=== PATIENT | female | born 1970 | race African-American/Black ===

== ENCOUNTER 2021-11-07 07:32 | Day surgery (SDC) | payer OTHER ==
[~2021-11-07] VITALS: Ht 167.6 cm; Wt 105.7 kg
[~2021-11-07 07:32] MED LIST: CENTRUM SILVER1 TA1; OMEGA 31000 MG PO; OMEPRAZOLE20 MG PO; PROBIOTI2 PO; TURMERIC CURCU500 MG PO; VALACYCLOVIR500 MG PO; [UNRECOGNIZED DRUG - OTHER] PO
[2021-11-07 09:57] VITALS: BP 148/75
== END 2021-11-07 10:00 | disposition home or self-care (01) | DRG 951 ==
LOC: ENDO 07:32
PROVIDERS: ATTEND Surgery
PROC: 0DBN8ZX Excision of Sigmoid Colon, Via Natural or Artificial Opening Endoscopic, Diagnostic (ICD-10-PCS; principal; 2021-11-07)
DX: Z12.11 Encounter for screening for malignant neoplasm of colon (principal); D12.5 Benign neoplasm of sigmoid colon; K64.8 Other hemorrhoids; K21.9 Gastro-esophageal reflux disease without esophagitis

== ENCOUNTER 2022-04-09 12:18 | Emergency (ER) | payer OTHER ==
[2022-04-09] VITALS (8 sets, daily range): BP systolic 120–144; BP diastolic 75–94
[~2022-04-09] VITALS: Ht 167.6 cm; Wt 102.0 kg
[2022-04-09 12:56] LABS: HEMATOCRIT 37.8 % (37.0-47.0); HEMOGLOBIN 12.1 g/dl (12.0-16.0); IMMATURE GRANULOCYTES 0.2 % (0.0-5.0); MEAN CELL VOLUME 78.1 fL CALC (80.0-100.0); NEUT# 3.18 thou/uL (2.00-7.15); RED BLOOD COUNT 4.84 mill/uL (4.20-5.60); RED CELL DISTRI WIDTH 14.7 % (11.5-15.5)
[2022-04-09 13:21] LABS: ALBUMIN 4.4 g/dL (3.2-5.0); ALKALINE PHOSPHATASE 90 u/l (38-126); ANION GAP 13 (6-22 (CALC)); BILIRUBIN, TOTAL 0.3 mg/dL (0.0-1.4); BUN 10 mg/dL (7-17); BUN/CREATININE RATIO 15 (12-20 (CALC)); CARBON DIOXIDE 28 mmol/l (22-30); CHLORIDE 105 mmol/l (95-108); CREATININE 0.7 mg/dL (0.5-1.0); GFR FOR AFR.AMER. > 60 ML/MIN (>=60 (CALC)); GFR OTHER RACES > 60 ML/MIN (>=60 (CALC)); LIPASE 159 u/l (23-300); POTASSIUM 3.9 mmol/l (3.5-5.1); SGOT/AST 28 u/l (14-36); SODIUM 143 mmol/l (137-146); TOTAL PROTEIN 7.9 g/dL (6.3-8.2)
[2022-04-09] MEDS ORDERED: PROTONIX40 M2 PO (15:52)
== END 2022-04-09 16:30 | disposition home or self-care (01) | DRG 392 ==
LOC: ED 12:18
PROVIDERS: Nurse Practitioner
DX: K21.9 Gastro-esophageal reflux disease without esophagitis (principal); R07.9 Chest pain, unspecified; R10.13 Epigastric pain
CPT/HCPCS: S0164